=== PATIENT | male | born 1960 | race African-American/Black ===

== ENCOUNTER → 2017-06-11 | Outpatient (CLI) | payer OTHER ==
--- NOTE | ~2017-06-11 | EE ---
Unit #: [id number] #: [id number] Patient: TIFFANIE KELLY [id number] [address] [address] [id number] O MR#: [id number] NAME: TIFFANIE KELLY. : 1960 SEX: M STUDY DATE/TIME: 06/11/2017 UNIT: [facility] ROOM: STUDY DESCRIPTION: EEG Attending Physician: Sadiq Blake II., M.D. Referring Physician: Sadiq Blake II., M.D. Primary Care Physician: Jimena Fay [facility]NOSTICS REPORT REASON FOR STUDY Seizures. TECH Amy REASON FOR STUDY Seizures. TECHNICAL INFORMATION This is a routine EEG performed using the standard International 10-20 System of electrode placement. Photic stimulation was performed. Hyperventilation was also performed. REPORT Throughout the entire study, the best background rhythm seen is approximately 10 Hz. This rhythm is seen in both posterior head regions symmetrically and does attenuate to eye opening and closure. Hyperventilation was performed which did not elicit any abnormal buildup. Photic stimulation was performed which did not elicit any epileptiform abnormalities; however, a good photic driving response was seen. Throughout the entire study, there were no electrographic seizures recorded nor were there any independent epileptiform abnormalities noted. Sleep was not recorded during the EEG interpretation. INTERPRETATION This is a normal awake EEG. A normal EEG does not rule out the possibility of a seizure disorder. Clinical correlation is advised. Dictated by... Dictated by... Sadiq Blake II., M.D. GWS/christie TD: 06/19/2017 12:54 JOB #: [id number] Unit #: [id number] #: [id number] Patient: TIFFANIE KELLY NEURODIAGNOSTICS REPORT Page 1 of 1 X NEURODIAGNOSTICS REPORT
--- NOTE | ~2017-06-11 | MR17 ---
[facility] A Service of [facility] RADIOLOGY TEXT RESULTS PATIENT: TIFFANIE KELLY LOCATION: [facility] : 64 UNIT #: [id number] AGE: [address]: Sadiq Blake II, MD SEX: M ORDER DR: [id number] [facility] [address] [place], [place] [address] [id number] O MR#: [id number] Acc #: [id number] NAME: TIFFANIE KELLY : 1960 SEX: M STUDY DATE/TIME: 06/11/2017 9:28 UNIT: [facility] ROOM: STUDY DESCRIPTION: MR Brain WWo Contrast Attending Physician: Sadiq Blake II., M.D. Referring Physician: Sadiq Blake II., M.D. Ordering Physician: Sadiq Blake II., M.D. Primary Care Physician: Jimena Fay [facility] REPORT This report is preliminary unless electronic signature is present. EXAM MR of the brain with and without contrast, dated 06/11/2017. COMPARISON CT head without contrast, dated 03/27/2004. HISTORY Seizures for many years. Patient has lost 55 pounds in the last 3 months. Just doesn't eat. Patient had meningitis at the age of 6. FINDINGS Multisequence, multiplanar imaging of the brain was obtained with and without contrast. GFR measured greater than 60. 15 mL of MultiHance was administered intravenously. No acute stroke, enhancing intracranial mass, mass effect, hydrocephalus or midline shift. Encephalomalacic changes and gliosis are noted in the left parietal lobe with ex vacuo dilatation of the adjacent atrium and posterior horn of the left lateral ventricle. Extension of mild gliosis is noted into the left occipital lobe also. There is mild midline shift of the left, likely related to parenchymal volume loss in the left. The right cerebral hemisphere is unremarkable. No hydrocephalus, acute stroke, hemorrhage or other acute abnormality. No meningeal enhancement is seen. Thin coronal T2 sequence through the hippocampal formations demonstrate atrophy asymmetrically smaller left hippocampal formation when compared to the right. There is mild S-shaped nasal septal deviation with minimal bilateral ethmoid sinus mucosal thickening. Medial bowing of the medial wall of the right orbit is seen. Imaged orbits with the ocular structures and mastoids are unremarkable except for minimal right mastoid tip mucosal thickening. IMPRESSION 1. Encephalomalacic changes and gliosis are noted in the left parietal lobe with ex vacuo dilatation of the adjacent left lateral ventricle. STS. [facility] A Service of [facility] RADIOLOGY TEXT RESULTS PATIENT: TIFFANIE KELLY LOCATION: [facility] : 64 UNIT #: [id number] AGE: [address]: Sadiq Blake II, MD SEX: M ORDER DR: 2. No acute intracranial abnormality. 3. 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 It could also be related to the patient's seizures. There is no significant increased T2 signal associated with it. mesial temporal sclerosis can also be considered in differential diagnosis, but its less likely seen first in this age group. Dictated by... Danish Webb M.D. THIS IS AN ELECTRONICALLY VERIFIED REPORT Danish Webb M.D. at 06/16/2017 11:33 AM CPR/jedie TD: 06/11/2017 20:36 JOB #: [id number] [facility] REPORT Page 1 of 1 COPY
[2017-06-11 16:31] LABS: POC - CREATININE 0.92 mg/dL (0.64-1.27); POC - GFR >60.0 mL/min (>60)
== END | disposition home or self-care (01) ==
LOC: CMRI 08:30
PROVIDERS: Psychiatry & Neurology Neurology
DX: R56.9 Unspecified convulsions (principal); G93.89 Other specified disorders of brain; G31.9 Degenerative disease of nervous system, unspecified
CPT/HCPCS: 70553; 82565; 95816; A9577